=== PATIENT | male | born 1965 | race Caucasian/White ===

== ENCOUNTER 2021-01-24 09:21 | Emergency (ER) | payer OTHER ==
[~2021-01-24] VITALS: Ht 185.4 cm; Wt 90.9 kg
[~2021-01-24 09:21] MED LIST: calcium chloride 100 MG/1 ML inj IV ONE; epiNEPHrine 0.1mg/ml 10ml syringe ONE
[2021-01-24] MEDS ORDERED: iohexol 350MG/ML 100ml bottle IV ONE ×2 (09:34→09:51)
[2021-01-24 09:36] VITALS: BP 130/83
--- NOTE | 2021-01-24 09:45 | NUR ---
While in CT with RN and EMT, pt became acutely confused, and tachypneic. He then cough of a moderate amount of leblanc red sputum. Assistance was called to the CT room to assist in transport back. While in route back to ED, pt went pulseless and apenic. Compressions initiated at that time.
[2021-01-24 09:50] LABS: BASOPHILS # (AUTO) 0.1 X10'3 (0-0.2); BASOPHILS % (AUTO) 0.9 % (0-1); EOSINOPHILS # (AUTO) 0.3 X10'3 (0-0.9); EOSINOPHILS % (AUTO) 2.6 % (0-6); HEMATOCRIT 48.7 % (42.0-52.0); HEMOGLOBIN 16.4 g/dl (14.0-17.9); LYMPHOCYTES # (AUTO) 2.6 X10'3 (1.1-4.8); LYMPHOCYTES % (AUTO) 26.5 % (21-51); MEAN CORPUSCULAR HGB CONC 33.7 g/dL (33.0-36.5); MEAN CORPUSCULAR VOLUME 86.1 FL (78-98); MEAN PLATELET VOLUME 8.2 FL (7.4-10.4); MONOCYTES # (AUTO) 0.9 X10'3 (0-0.9); MONOCYTES % (AUTO) 9.1 % (2-12); NEUTROPHILS % (AUTO) 60.9 % (42-75); PLATELET COUNT 221 X10'3 (140-440); RED BLOOD COUNT 5.65 X10'6 (4.70-6.10); RED CELL DISTRIBUTION WIDTH 14.6 % (11.5-14.5); WHITE BLOOD COUNT 9.8 X10'3 (4.5-11.0)
--- NOTE | 2021-01-24 09:59 | NUR ---
pt had code in CT, cpr in progress on arrival, crash cart in room 0959 epi given, pt clamped down, rt present 100% bagged, cpr in progress 1001 etomidate 20 admin, mark 100mg admin 1002 dr falk intubated 8.0 tube, suction, admin epi, 1002 pulse check, no pulse, resumed compressions 1003 bicarb admin 1005 epi admin, cpr in progress 1007 pulse check, no pulse , dr falk ultrasound, no organized rhythm noted to heart [address] falk
[2021-01-24 10:08] LABS: PARTIAL THROMBOPLASTIN TIME 30 SECONDS (22-32)
[2021-01-24 10:16] LABS: ALANINE AMINOTRANSFERASE 82 U/L (12-78); ALBUMIN 3.8 G/DL (3.4-5.0); ALBUMIN/GLOBULIN RATIO 1.1 (1.1-1.5); ALKALINE PHOSPHATASE 92 IU/L (46-116); ANION GAP 16 (8-16); ASPARTATE AMINO TRANSFERASE 67 U/L (10-37); BILIRUBIN,TOTAL 0.5 MG/DL (0.1-1.0); BLOOD UREA NITROGEN 12 MG/DL (7-18); BUN/CREATININE RATIO 8.2 (5.4-32.0); CALCIUM 8.8 MG/DL (8.5-10.1); CHLORIDE 99 MMOL/L (99-107); CREATININE 1.47 MG/DL (0.60-1.10); GLUCOSE 143 MG/DL (70-104); POTASSIUM 3.5 MMOL/L (3.5-5.1); SODIUM 139 MMOL/L (135-145); TOTAL CARBON DIOXIDE 24.2 MMOL/L (24-32); TOTAL PROTEIN 7.2 G/DL (6.4-8.2); eGFR 50 ML/MIN
[2021-01-24 10:23] LABS: MAGNESIUM 2.3 MG/DL (1.5-2.4)
--- NOTE | 2021-01-24 10:37 | NUR ---
Spoke with patients cousin at which I requested that he come to ED as soon as possible. He agreed as stated he would be here soon.
[2021-01-24] MEDS ORDERED: etomidate 2mg/ml inj. ONE (16:00)
[2021-01-24] MEDS ORDERED: rocuronium 10mg/ml inj IV ONE (16:00)
== END 2021-01-24 15:59 | disposition expired ==
LOC: ER 09:22
DX: I71.00 Dissection of unspecified site of aorta (principal); I46.9 Cardiac arrest, cause unspecified; Z20.822 Contact with and (suspected) exposure to COVID-19; Z72.89 Other problems related to lifestyle; R79.1 Abnormal coagulation profile
CPT/HCPCS: 31500; 36415; 71275; 74174; 80053; 83735; 83880; 84484; 85025; 85610; 85730; 87635; 92950; 93005; 99291; C9803; J0171; Q9967